=== PATIENT | male | born 1965 | race Caucasian/White ===

== ENCOUNTER 2017-03-20 19:23 | Emergency (ER) | payer MEDICARE, MEDICAID ==
[~2017-03-20] VITALS: Ht 185.4 cm; Wt 93.0 kg
[2017-03-20] MEDS ORDERED: CATAPRES0.1 MG PO (22:55)
[2017-03-20] MEDS ORDERED: RISPERDAL3 MG PO (22:56)
[2017-03-20] MEDS ORDERED: BYDUREON2 MG SUBCUT (23:01)
[2017-03-20] MEDS ORDERED: GLUCOPHAGE500 MG PO (23:03)
[2017-03-20] MEDS ORDERED: LIPITOR80 MG PO (23:05)
[2017-03-20] MEDS ORDERED: SYNTHROID100 MCG PO (23:06)
[2017-03-20] MEDS ORDERED: VITAMIN D31000 UNI1 PO (23:07)
[2017-03-20] MEDS ORDERED: DEPAKOTE ER500 MG PO (23:15)
[2017-03-20] MEDS ORDERED: ZOLOFT100 MG PO (23:16)
[2017-03-21] MEDS ORDERED: KLOR-CON M1010 MEQ PO (08:49)
== END 2017-03-20 21:44 | disposition short-term general hospital (02) ==
LOC: ER 19:23
DX: R55 Syncope and collapse (principal); I45.81 Long QT syndrome; R42 Dizziness and giddiness; M25.531 Pain in right wrist; E55.9 Vitamin D deficiency, unspecified; E11.9 Type 2 diabetes mellitus without complications; E78.5 Hyperlipidemia, unspecified; E03.9 Hypothyroidism, unspecified; G47.33 Obstructive sleep apnea (adult) (pediatric); F90.9 Attention-deficit hyperactivity disorder, unspecified type; Z79.84 Long term (current) use of oral hypoglycemic drugs; Z79.899 Other long term (current) drug therapy

== ENCOUNTER 2017-03-20 23:03 | Observation (INO) | payer MEDICARE, MEDICAID ==
[~2017-03-20] VITALS: Ht 185.4 cm; Wt 95.3 kg
[~2017-03-20 23:03] MED LIST: BYDUREON2 MG SUBCUT; CATAPRES0.1 MG PO; GLUCOPHAGE500 MG PO; RISPERDAL3 MG PO
[2017-03-20] MEDS ORDERED: LIPITOR80 MG PO (23:05)
[2017-03-20] MEDS ORDERED: SYNTHROID100 MCG PO (23:06)
[2017-03-20] MEDS ORDERED: VITAMIN D31000 UNI1 PO (23:07)
[2017-03-20] MEDS ORDERED: DEPAKOTE ER500 MG PO (23:15)
[2017-03-20] MEDS ORDERED: ZOLOFT100 MG PO (23:16)
[2017-03-21] MEDS ORDERED: KLOR-CON M1010 MEQ PO (08:49)
== END 2017-03-21 08:56 | disposition short-term general hospital (02) ==
LOC: IP 23:03 → OBS 23:03 → IP 23:03
PROVIDERS: ADMIT Family Medicine
DX: R55 Syncope and collapse (principal); R42 Dizziness and giddiness; I45.81 Long QT syndrome; F90.9 Attention-deficit hyperactivity disorder, unspecified type; E11.9 Type 2 diabetes mellitus without complications; E78.5 Hyperlipidemia, unspecified; E03.9 Hypothyroidism, unspecified; G47.33 Obstructive sleep apnea (adult) (pediatric); Z79.84 Long term (current) use of oral hypoglycemic drugs; Z79.899 Other long term (current) drug therapy
CPT/HCPCS: G0378